=== PATIENT | female | born 1955 | race Caucasian/White ===

== ENCOUNTER 2016-03-19 13:31 | Emergency (ER) | payer MEDICARE, OTHER ==
[~2016-03-19] VITALS: Ht 157.5 cm; Wt 140.0 kg
[~2016-03-19 13:31] MED LIST: ALBU8.5H2 IH; AMOX500C5 PO; ASPI-860 PO; ATN25T PO; CYCL10TA45 PO; FLT11013 INH; GABA100C PO; HYDR-3702 PO; INSU100I14 SQ; INSU100V32 SC; LOSA1TAB3 PO; METF1000 PO; SMV20T PO
--- OUTSIDE RECORDS SUMMARY | 2016-03-19 13:36 | XMS REPORT | Continuity of Care Document ---
Author Author [facility] Address Unknown Phone Unavailable Support Name Relationship Address Phone PEDRO COTTER Caregiver [address] [place] [address] Unavailable FREDDY LOPEZ MD Caregiver [address] [place] [address] [employer] Next Of Kin [address] [place] [phone] Insurance Providers Payer Name Policy Number Subscriber Name Relationship Medicare A And B [id number] Cally Loerae Kristin 18 Self / Same As Patient [id number] [employer] 01 Advance Directives Directive Response Recorded Date/Time Advanced Directives No 08/11/15 5:43pm Chief Complaint and Reason for Visit Chief Complaint Respiratory Complaint Reason for Visit Upper respiratory infection Pharyngitis Asthma Problems Active Problems Medical Problem Onset Date Status Asthma Unknown Acute Pain of left lower extremity Unknown Acute Pancreatitis, acute ~05/03/2014 Acute Pharyngitis Unknown Acute Upper respiratory infection Unknown Acute Medications Current Home Medications Medication Dose Units Route Directions Days/Qty Instructions Start Date Insulin Aspart 100 Unit/1 Ml 15 Unit Sub-Q Three Times Daily With Meals 05/03/14 Simvastatin (Zocor) 20 Mg 20 Mg ORAL Daily 05/03/14 Atenolol (Tenormin) 25 Mg 25 Mg ORAL Daily 05/03/14 Metformin Hcl (Glucophage) 1,000 Mg 1,000 Mg ORAL Twice A Day Aspirin 81 Mg 81 Mg ORAL Daily 05/03/14 Acetaminophen/Hydrocodone Bitart 1 Each 1-2 Tab ORAL Every 4HRS as needed for Pain 18 05/03/14 Hydrocodone Bit/Acetaminophen 1 Each 1-2 Each ORAL Every 6 Hours 20 Fluticasone Propionate 1 Ea 1 Ea RESPIRATORY (INHALATION) As Needed 2 08/11/15 Albuterol Sulfate 8.5 Gm 8.5 Gm RESPIRATORY (INHALATION) As Needed 2 08/11/15 Losartan/Hydrochlorothiazide 1 Each 1 Each ORAL Twice A Day 08/11/15 Amoxicillin 500 Mg 500 Mg ORAL Three Times A Day 10 Days 08/11/15 Past Home Medications Medication Directions Ordered Status Insulin Glargine,Hum.rec.anlog 100 Unit/1 Ml Vial, 50 Unit Subcutaneous Bedtime 05/03/14 Discontinued Gabapentin 100 Mg Capsule, 100 Mg Oral Daily 05/03/14 Discontinued Cyclobenzaprine Hcl 10 Mg Tablet, 10 Mg Oral Three Times A Day as needed for Pain 01/23/15 Discontinued Social History Query Response Start Date Stop Date Smoking Status Never smoker Hospital Discharge Instructions No hospital discharge instructions. Plan of Care Discharge Date 08/11/15 6:08pm Disposition 01 HOME OR SELF-CARE Condition at Discharge Stable Instructions/Education Provided Asthma (ED) Pharyngitis (ED) Upper Respiratory Infection (ED) Prescriptions See Medication Section Additional Instructions/Education Continue OTC Ibuprofen 400mg every 6 hours with food as needed for pain. Continue OTC Robitussin, per bottle, as main cough med. Robitussin AC as Rx'd, 2 teasp mainly at bedtime as needed for significant cough. OTC Benadryl 25mg, ONE at bedtime as needed for any insomnia during the next several days as a result of the steroid shot in the ER. Continue your Flovent, rinse mouth after every use. Continue your inhaler, 2 puffs every 3-4 hours NEEDED for shortness of air. If your sore throat is persisting as of Wednesday morning, start Rx Amox 500mg. Salt water gargles, 1/4 teasp in 8 oz water, ad lida. Soft diet. PUSH FLUIDS. Follow up with your PCP this week if getting worse despite treatment. Some of your test results may not be complete prior to your leaving the Emergency Department. The Emergency Department is not authorized to give test results over the phone. Please contact the doctor's office listed in this packet of information for your final results. Follow up with your primary care physician or return to the Emergency Department for worsening or worrisome symptoms. * Emergency Department phone number: [phone], x [phone]* MEDICAL RECORD If you need copies of your X-rays, call [phone]. If you need copies of your medical record, including lab results, a signed authorization for release of records will be required. A telephone call for release of Health Information is not allowed. BILLING Billing can sometimes be confusing and frustrating. To help avoid confusion in the future, please take a moment to acquaint yourself with the billing parties for services. SERVICE BILLING [employer] Emergency Room Services [facility] Physician Services [facility] X-rays [place] [facility] Patients will receive bills for services from the appropriate provider. If you have any questions about your [facility] bill, our staff will be happy to assist you. Please call [phone], and ask for the billing department. THANK YOU for choosing [facility] as your emergency care provider! Care Plan and Goals ~~Discharge Care Plan~~ Problem: Breathing difficulty Goal: Able to breathe without shortness of air and perform usual activities. Instructions: Take medication(s) as directed. Follow physician discharge instructions. Follow up with primary care physician as directed. Use inhalers as needed. Functional Status No functional status results. Allergies, Adverse Reactions, Alerts No known allergies. Immunizations Name Given Type Status Date Influenza Vaccine Received if Current 12/27/14 Historical Historical Vital Signs Acute Vital Signs Vital Response Date/Time Temperature (Fahrenheit) 97.6 08/11/2015 6:11pm Pulse 88 bpm 08/11/2015 6:11pm Respirations 18 08/11/2015 6:11pm Height 5 ft 1 in Weight 297 lb Body Mass Index 56.0 kg/m^2 Results No known relevant diagnostic tests, laboratory data and/or discharge summary. Procedures No known history of procedures. Encounters Encounter Location Arrival/Admit Date Discharge/Depart Date Attending Provider Departed Emergency Room [facility] 08/11/15 5:29pm 08/11/15 6:08pm FREDDY LOPEZ MD Recent Diagnosis
--- NOTE | 2016-03-19 13:40 | NUR ---
Patient slipped and fell in triage room - unwitnessed - and landed on left knee. Complains of left knee pain rated 7/10. Patient unable to stand up off of floor. Dr. Sandhu in triage room to assess patient. 2 EMS staff and 3 ED staff (including doctor) log roll patient to backboard and lift her to bed with stabilization. Dr. Sandhu clears C-Spine - no need for c-collar. Patient removed from backboard and comfortable in bed. Siderails up x2 and call light in reach. Left knee elevated for comfort.
[2016-03-19 14:35] LABS: BASOPHILS % (AUTO) 1 % (0-2); EOSINOPHILS # (AUTO) 0.5 10^3uL; EOSINOPHILS % (AUTO) 9 % (0-4); LYMPHOCYTES # (AUTO) 1.2 X10^3; MEAN CORPUSCULAR HEMOGLOBIN 27.1 PG (26.0-34.0); MEAN CORPUSCULAR HGB CONC 32.6 g/dL (31.0-37.0); MEAN CORPUSCULAR VOLUME 83 FL (80-100); MONOCYTES # (AUTO) 0.6 X10^3; MONOCYTES % (AUTO) 11 % (3-11); NEUTROPHILS # (AUTO) 3.4 X10^3; NEUTROPHILS % (AUTO) 59 % (51-67); PLATELET COUNT 227 10^3uL (150-450); WHITE BLOOD COUNT 5.79 10^3uL (4.0-11.0)
[2016-03-19 14:44] LABS: ANION GAP 13.3 MEQ/L (3-15)
--- NOTE | 2016-03-19 15:02 | Diagnostic Imaging Report ---
Indication: Cough Portable chest 2:41 PM Heart size and pulmonary vascularity are normal. Lungs are clear. There are no effusions or pneumothoraces. Impression: Negative chest Dictated by: Dictated on workstation # [id number]
[2016-03-19] MEDS ORDERED: AZIT250T81 PO (15:17)
--- NOTE | 2016-03-19 15:26 | Diagnostic Imaging Report ---
INDICATION: Knee injury from a fall. FINDINGS: AP, lateral and sunrise views of left knee were obtained. The patella is intact. There is narrowing of the medial tibiofemoral joint space. The other compartments of the knee are fairly well preserved. IMPRESSION: Moderate degenerative changes in the medial compartment of the knee. No acute abnormality seen. Dictated by: Dictated on workstation # [id number]
[2016-03-19 18:53] VITALS: BP 158/85
== END 2016-03-19 15:59 | disposition home or self-care (01) ==
LOC: ED 13:33
DX: J06.9 Acute upper respiratory infection, unspecified (principal); S80.02XA Contusion of left knee, initial encounter; W01.198A Fall on same level from slipping, tripping and stumbling with subsequent striking against other object, initial encounter; Y93.01 Activity, walking, marching and hiking; Y92.238 Other place in hospital as the place of occurrence of the external cause; E10.65 Type 1 diabetes mellitus with hyperglycemia
CPT/HCPCS: 36415; 71010; 73564; 80048; 85025; 99282; 99283